=== PATIENT | female | born 1950 | race Caucasian/White ===

== ENCOUNTER 2024-02-21 05:22 | Day surgery (SDC) | payer MEDICARE, OTHER ==
[~2024-02-21] VITALS: Ht 152.4 cm; Wt 57.7 kg
[~2024-02-21 05:22] MED LIST: KETOROLAC TROMETHAMINE 0.5% 5 ML OPHTHALMIC SOLUTION ONE; MOXIFLOXACIN HCL 0.5% 3 ML OPHTHALMIC SOLUTION ONE; PHENYLEPHRINE HCL 2.5% 2 ML OPHTHALMIC SOLUTION ONE; RINGERS SOLUTION,LACTATED 500 ML IV ONE; TROPICAMIDE 1% 2 ML OPHTHALMIC SOLUTION ONE
[2024-02-21] MEDS: RINGERS SOLUTION,LACTATED 500 ML IV ONE (06:22)
[2024-02-21] MEDS ORDERED: MOXIFLOXACIN HCL 0.5% 3 ML OPHTHALMIC SOLUTION ONE (06:26)
[2024-02-21] MEDS: PHENYLEPHRINE HCL 2.5% 2 ML OPHTHALMIC SOLUTION OS SCH (06:44)
[2024-02-21] MEDS: TROPICAMIDE 1% 2 ML OPHTHALMIC SOLUTION OS SCH (06:44)
[2024-02-21] MEDS: KETOROLAC TROMETHAMINE 0.5% 5 ML OPHTHALMIC SOLUTION OS SCH (06:44)
[2024-02-21] MEDS: MOXIFLOXACIN HCL 0.5% 3 ML OPHTHALMIC SOLUTION OS SCH (06:45)
[2024-02-21] MEDS: EPINEPHrine 1:1,000 [1 MG/ML] VIAL ONE (07:15)
[2024-02-21] MEDS: POVIDONE-IODINE 5% 30 ML OPHTHALMIC SOLUTION ONE (07:15)
[2024-02-21] MEDS: BALANCED SALT 15 ML OPHTHALMIC IRRIG.SOLN ONE (07:15)
[2024-02-21] MEDS: LIDOCAINE/PF 1% 2 ML VIAL ONE (07:15)
[2024-02-21] MEDS: TETRACAINE HCL/PF 0.5% 4 ML OPHTHALMIC SOLUTION ONE (07:15)
[2024-02-21] MEDS ORDERED: NEOMYCIN/POLYMYXIN B/DEXAMETH 3.5 GM OPHTHALMIC OINTMENT ONE (07:48)
[2024-02-21] MEDS ORDERED: OXYGEN THERAPY IH SCH (08:00)
[2024-02-21] MEDS ORDERED: FentaNYL CITRATE PF 100 MCG/2 ML VIAL IVP ONE (12:00)
[2024-02-21] MEDS ORDERED: MIDAZOLAM HCL 2 MG/2 ML VIAL IVP ONE (12:00)
== END 2024-02-21 11:12 | disposition home or self-care (01) ==
LOC: SURGERY 05:22
PROVIDERS: ATTEND Ophthalmology
DX: H25.12 Age-related nuclear cataract, left eye (principal); Z98.890 Other specified postprocedural states; Z87.01 Personal history of pneumonia (recurrent); G47.30 Sleep apnea, unspecified; E78.00 Pure hypercholesterolemia, unspecified; M19.90 Unspecified osteoarthritis, unspecified site; Z20.822 Contact with and (suspected) exposure to COVID-19; G20.A1 Parkinson's disease without dyskinesia, without mention of fluctuations
CPT/HCPCS: 66984; 93005; J0171; J3010; J3490; J2250; J7120; V2787